=== PATIENT | female | born 1940 | race Caucasian/White ===

== ENCOUNTER → 2024-01-06 07:45 | Outpatient (REF) | payer MEDICARE, OTHER, SELFPAY ==
[2024-01-06 12:23] LABS: Albumin 3.7 g/dl (3.5-5.0); Blood Urea Nitrogen 25 mg/dl (7-17); Calcium 10.2 mg/dl (8.4-10.2); Carbon Dioxide 32 mmol/L (22-30); Chloride 102 mmol/L (98-107); Glucose 92 mg/dl (70-99); Phosphorus 3.9 mg/dl (2.5-4.5); Potassium 3.7 mmol/L (3.5-5.1); Sodium 135 mmol/L (135-145); eGFR > 60.00
== END ==
LOC: HWLAB 07:45
PROVIDERS: ATTENDING PHYSICIAN Internal Medicine Cardiovascular Disease; FAMILY PHYSICIAN Nurse Practitioner Adult Health
DX: I48.19 Other persistent atrial fibrillation (principal); I48.91 Unspecified atrial fibrillation; I10 Essential (primary) hypertension; I34.0 Nonrheumatic mitral (valve) insufficiency; R60.0 Localized edema
CPT/HCPCS: 36415; 80069

== ENCOUNTER → 2024-01-25 13:01 | Outpatient (REF) | payer MEDICARE, OTHER, SELFPAY | LOC: DHCBC HW 13:01 | PROVIDERS: ATTENDING PHYSICIAN Internal Medicine Cardiovascular Disease; FAMILY PHYSICIAN Nurse Practitioner Adult Health | DX: I48.91 Unspecified atrial fibrillation (principal); I48.19 Other persistent atrial fibrillation; I10 Essential (primary) hypertension; I34.0 Nonrheumatic mitral (valve) insufficiency; I36.1 Nonrheumatic tricuspid (valve) insufficiency | CPT/HCPCS: 93306 ==

== ENCOUNTER → 2024-02-28 17:23 | Outpatient (REF) | payer MEDICARE, OTHER, SELFPAY | LOC: WDC 17:23 | PROVIDERS: ATTENDING PHYSICIAN Nurse Practitioner Adult Health | DX: Z12.31 Encounter for screening mammogram for malignant neoplasm of breast (principal) | CPT/HCPCS: 77063; 77067 ==

== ENCOUNTER → 2024-03-02 07:14 | Outpatient (REF) | payer MEDICARE, OTHER, SELFPAY ==
[2024-03-02 10:19] LABS: ALT (SGPT) 16 U/L (0-35); AST (SGOT) 29 U/L (14-36); Albumin 3.7 g/dl (3.5-5.0); Alkaline Phosphatase 79 U/L (38-126); Blood Urea Nitrogen 27 mg/dl (7-17); Calcium 10.2 mg/dl (8.4-10.2); Carbon Dioxide 30 mmol/L (22-30); Chloride 105 mmol/L (98-107); Glucose 92 mg/dl (70-99); Potassium 3.9 mmol/L (3.5-5.1); Sodium 139 mmol/L (135-145); Total Bilirubin 0.5 mg/dl (0.2-1.3); eGFR > 60.00
== END ==
LOC: HWLAB 07:14
PROVIDERS: ATTENDING PHYSICIAN Internal Medicine Rheumatology; FAMILY PHYSICIAN Nurse Practitioner Adult Health
DX: M81.0 Age-related osteoporosis without current pathological fracture (principal); Z79.899 Other long term (current) drug therapy
CPT/HCPCS: 36415; 80053

== ENCOUNTER 2024-05-23 06:23 | Day surgery (SDC) | payer SELFPAY, MEDICARE, OTHER ==
[2024-05-11 08:45] VITALS: BMI 24.1
[2024-05-11 10:09] LABS: % Basophils 0.5 % (0-2); % Eosinophils 1.6 % (0-6); % Immature Granulocytes 0.3 % (0-0.5); % Lymphocytes 22.6 % (20.5-51.1); % Monocytes 11.2 % (1.7-9.3); % Neutrophils 63.8 % (42.2-75.2); Absolute Eosinophils 0.1 10^3/uL (0-0.7); Absolute Lymphocytes 1.7 10^3/uL (1.2-3.4); Absolute Monocytes 0.8 10^3/uL (0.1-0.6); Absolute Neutrophils 4.8 10^3/uL (1.4-6.5); Hematocrit 38.2 % (37.0-47.0); Hemoglobin 12.7 g/dL (12.0-16.0); Mean Corp Hgb Conc. 33.2 g/dL (33.0-37.0); Mean Corpuscular Hgb 30.8 pg (27.0-31.0); Mean Corpuscular Volume 92.7 fL (81.0-99.0); Mean Platelet Volume 10.8 fL (7.4-10.4); Nucleated Red Blood Cells % 0 %; Platelet Count 250 10^3/uL (130-400); Red Blood Cell Count 4.12 10^6/uL (4.20-5.40); Red Cell Dist. Width 14.6 % (11.5-14.5); White Blood Cell Count 7.5 10^3/uL (4.8-10.8)
[2024-05-11 10:24] LABS: ALT (SGPT) 15 U/L (0-35); AST (SGOT) 24 U/L (14-36); Albumin 3.8 g/dl (3.5-5.0); Alkaline Phosphatase 70 U/L (38-126); Blood Urea Nitrogen 27 mg/dl (7-17); Calcium 10.4 mg/dl (8.4-10.2); Carbon Dioxide 30 mmol/L (22-30); Chloride 102 mmol/L (98-107); Estimated Creatinine Clearance 37 ml/min; Glucose 83 mg/dl (70-99); Potassium 3.9 mmol/L (3.5-5.1); Sodium 138 mmol/L (135-145); Total Bilirubin 0.6 mg/dl (0.2-1.3); Total Protein 6.6 g/dl (6.3-8.2); eGFR > 60.00
[2024-05-23] VITALS (9 sets, daily range): BP systolic 113–153; BP diastolic 59–90; BMI 24.1
[2024-05-23] MEDS: NORMOSOL-R 1000 IV (11:30)
[2024-05-23] MEDS: TYLENOL 1000 MG PO ×3 (11:32→23:18)
--- NOTE | 2024-05-23 13:27 | W.SUR.PREOP ---
Pre-Operative Surgical Note
-
I have examined this patient prior to the performance of the scheduled procedure.
The patient's condition is unchanged from the time of the current History and
Physical and the patient is able to undergo the scheduled procedure.
--- NOTE | 2024-05-23 13:30 | W.IMMPOSTOP ---
Surgical Immed Post Op Note
-
Primary Surgeon: JAIDEN Tuttle MD
Assisting Surgeon:
Pre-op Diagnosis: Capsular Contracture, Breast implant rupture; bilateral
Post-op Diagnosis: Same
Procedure Performed: Bilateral capsulectomies and removal of breast implants with reinsertion
Anesthesia Type:
Specimen / Cultures: Bilateral breast capsules
Estimated Blood Loss: 10cc
Complications: None
Operative Findings: Bilateral ruptures silicone implants
--- NOTE | 2024-05-23 13:30 | OR.RPT ---
Operative Report
Operative Report
Date of surgery: 05/23/2024
Surgeon: JAIDEN Tuttle MD
Preoperative diagnosis total: History of bilateral breast implants, bilateral capsular contracture, bilateral implant rupture
Postoperative diagnosis: Same
Procedure:
1. Bilateral capsulectomy, total, with removal of ruptured implant contents
2. Bilateral reinsertion of silicone gel breast implants (cosmetic)
anesthesia: General
Complications: None
Specimens: Right and left breast capsule
EBL: 30 cc
Indications for procedure: Patient is an 83-year-old female with a history of bilateral silicone gel breast implants. These were placed over 20 years ago. She has recently had a mammogram and additional imaging study that showed concern for
implant rupture. She presented for consideration of removal and capsulectomy for capsular contracture. We discussed her options at length. This included going back to her baseline breast size, performing a lift, or replacing the breast implants.
She understood that replacement of breast implants would be done for cosmetic and self-pay. Risks of implants were reviewed at length including capsular contracture, rupture, infection, malposition, rippling and wrinkling. She understood these
risk desired to proceed. Given her medical history, cardiology and pulmonology were both consulted for preoperative clearance. A plan was made with her tree worker for perioperative hold of anticoagulation. She understood the risks associated
and consented accordingly. Her daughters were present at the consultation and subsequent visits.
Procedure in detail: Patient was identified in the preoperative area and the surgical site was confirmed to be the bilateral breast. Bilateral inframammary fold incisions were marked accordingly. All questions were answered and consents were
confirmed. Patient was then taken back to the operating room placed supine on the table. Anesthesia was induced and LMA was placed. Procedure began with the injection 1% lidocaine with epinephrine in the bilateral proposed incisions. 15 blade
was used to incise the markings on the right breast and dissection continued with Bovie electrocautery. A total en bloc capsulectomy was performed however there was evidence of implant rupture into the associated subcutaneous tissues. There is no
evidence of implant size as the shell was largely no longer intact. Attempt at displacement testing showed at least a 300 cc implant. Patient desired to be bigger following the replacement the implants, and as such a larger implant was selected.
After ensuring meticulous hemostasis on the right, blocks were performed with dilute half percent Marcaine. The wound was irrigated with double antibiotic solution and dilute Betadine and the skin was reprepped. Under sterile conditions and using
a no touch technique and new gloves a new Sientra silicone gel implant was placed. Wound was then closed in layers using 2-0 Vicryl followed by 3-0 and 4 Monocryl. The exact same procedure was then performed on the left side. A capsulectomy was
performed through an inframammary fold incision. There was also evidence of implant rupture and the shell was not intact to determine the size. As such the equivalent implant was from the right was chosen and placed on the left side as well. This
was done with no touch technique using a Alex funnel and after donning new gloves. Blocks were also performed on the side. The new larger implants occupy the potential space and no drains were placed accordingly. Patient tolerated the procedure
well was performed out complication all counts were correct at the end the case. She was extubated transferred to PACU for further care. Incisions were dressed with bacitracin dry gauze and Tegaderm. Compressive bra was placed.
[2024-05-23] MEDS: LIPITOR 10 MG PO (18:05)
--- NOTE | 2024-05-23 18:07 | PTCARENOTE ---
Received pt from PACU in bed. AO but drowsy. Curtis breast dressings c/d/i, compression bra in place. VSS. Reports pain is tolerable, unable to quantify.
[2024-05-23] MEDS: ULTRAM 50 MG PO (18:33)
[2024-05-23] MEDS: ANCEF 5 IV (20:38)
[2024-05-24 03:17] VITALS: BP 146/74
[2024-05-24] MEDS: ANCEF 5 IV (05:27)
[2024-05-24] MEDS: TYLENOL 1000 MG PO ×2 (05:27→11:37)
[2024-05-24 07:00] VITALS: BP 146/81
[2024-05-24] MEDS: LASIX 20 MG PO (07:51)
[2024-05-24] MEDS: CARDIZEM CD 120 MG PO (07:52)
--- NOTE | 2024-05-24 09:11 | W.PN.PLAS ---
Today's Communication
-
discharge to home
Progress Note
Subjective Data
Denies SOB
Pain well controlled on PO meds
Subjective: Tolerating Regular Diet
Objective Data
Vital Signs
Temp Pulse Resp BP Pulse Ox
97.8 F 89 16 146/81 96
05/24/24 07:00 05/24/24 07:51 05/24/24 07:03 05/24/24 07:51 05/24/24 07:03
Intake and Output
05/23/24 05/24/24 05/25/24
06:59 06:59 06:59
Intake Total 580 / 580
Balance 580 / 580
Intake:
Oral fluids 480 / 480
IV fluids (Total) 100 / 100
Normosol 100 / 100
Other:
Number of approximated MODERATE 1
amounts of urine
Number of approximated LARGE 1
amounts of urine
Physical Exam:
Nad
No increased WOB
Bilateral breasts soft
No undrained collections appreciated
Dressings intact
Lab Results
05/11/24 08:43
05/11/24 08:43
Assessment / Plan
s/p bilateral removal of ruptured breast implants and capsulectomies with replacement of silicone gel implants
-Discharge to home
-Compressive bra
-Continue home medications
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
--- NOTE | 2024-05-24 09:17 | W.DCSUMMARY ---
Discharge Summary
Discharge Data
Date of Admission: 05/23/24
Date of Discharge: 05/24/24
-
Pending Results: No
Hospital Course
Admitted for airway monitoring after bilateral ruptured breast implant removal and capsulectomies.
Followed a routine postoperative course
Discharged to home with short term follow up
Discharge Plan
-
Patient Disposition: Home (Routine Discharge)
Condition: Good
Referrals:
Naseem Tuttle MD [Active] -
UNKNOWN - PT DOES,NOT KNOW [Family Provider] -
Prescriptions:
New
tramadol 50 mg Tablet
50 mg PO Q6HPRN PRN (Reason: pain) 5 Days Qty: 12 0RF
cefadroxil 500 mg capsule
500 mg PO BID Qty: 14 0RF
acetaminophen [Tylenol Extra Strength] 500 mg Tablet
1,000 mg PO Q6 30 Days Qty: 240 0RF
Continued
simvastatin 20 MG tablet
10 mg PO QPM
calcium 500 mg Tablet
500 mg PO BID
Colace 50 mg Capsule
1 mg PO PRN PRN (Reason: constipation)
furosemide 20 mg Tablet
20 mg PO DAILY
escitalopram oxalate 10 mg Tablet
10 mg PO DAILY
Prolia 60 mg/mL Syringe
60 mg SC [id number]
Arnuity Ellipta 200 mcg/actuation Blister With Device
1 inh INHALATION DAILY
diltiazem HCl [Cartia XT] 120 mg Capsule,Extended Release 24hr
120 mg PO DAILY
Held
Eliquis 2.5 mg Tablet
2.5 mg PO BID
Hold Instructions: Resume on 05/25/24.
Hold for 48 hours postoperatively
Discharge Orders:
Discharge Patient (As Directed); Ordered 05/24/24
Ordered By: Naseem Tuttle
Discharge Date and Time
Print Language: [place]
--- NOTE | 2024-05-24 09:59 | CM ---
Reviewed the chart notes and spoke with the patient and her daughters at the bedside. The patient resides alone in a condo, no steps to enter. The patient uses a cane outside her condo only. The patient has had VN in past, but could not recall
the name of the agency, no SNF. The [facility] choice [facility]. The patient's daughter will provide transportation home today. CM continues to be available to patient/family and is monitoring medical plan for needs at
discharge.
Plan: Discharge to home today. No needs identified.
[2024-05-24 11:48] VITALS: BP 134/76
== END 2024-05-24 12:56 | disposition home or self-care (01) ==
LOC: SDS 06:23
PROVIDERS: ATTENDING PHYSICIAN Surgery Plastic and Reconstructive Surgery
DX: Z41.1 Encounter for cosmetic surgery (principal); T85.49XA Other mechanical complication of breast prosthesis and implant, initial encounter; Y83.1 Surgical operation with implant of artificial internal device as the cause of abnormal reaction of the patient, or of later complication, without mention of misadventure at the time of the procedure
CPT/HCPCS: 19342; 19370; 88304; 36415; 80053; 85025; 93005; 94640

== ENCOUNTER → 2024-06-20 13:07 | Outpatient (REF) | payer MEDICARE, OTHER, SELFPAY ==
[2024-06-20 16:01] LABS: % Basophils 0.6 % (0-2); % Eosinophils 1.8 % (0-6); % Immature Granulocytes 0.3 % (0-0.5); % Monocytes 9.2 % (1.7-9.3); % Neutrophils 69.1 % (42.2-75.2); Absolute Basophils 0.1 10^3/uL (0-0.2); Absolute Eosinophils 0.2 10^3/uL (0-0.7); Absolute Lymphocytes 1.7 10^3/uL (1.2-3.4); Absolute Monocytes 0.8 10^3/uL (0.1-0.6); Absolute Neutrophils 6.1 10^3/uL (1.4-6.5); Hematocrit 36.4 % (37.0-47.0); Hemoglobin 11.8 g/dL (12.0-16.0); Mean Corp Hgb Conc. 32.4 g/dL (33.0-37.0); Mean Corpuscular Hgb 30.9 pg (27.0-31.0); Mean Corpuscular Volume 95.3 fL (81.0-99.0); Mean Platelet Volume 10.8 fL (7.4-10.4); Nucleated Red Blood Cells % 0 %; Platelet Count 388 10^3/uL (130-400); Red Blood Cell Count 3.82 10^6/uL (4.20-5.40); Red Cell Dist. Width 18.4 % (11.5-14.5); White Blood Cell Count 8.8 10^3/uL (4.8-10.8)
[2024-06-20 16:13] LABS: ALT (SGPT) 15 U/L (0-35); AST (SGOT) 26 U/L (14-36); Alkaline Phosphatase 58 U/L (38-126); Blood Urea Nitrogen 30 mg/dl (7-17); Carbon Dioxide 35 mmol/L (22-30); Chloride 100 mmol/L (98-107); Glucose 115 mg/dl (70-99); Phosphorus 2.9 mg/dl (2.5-4.5); Potassium 3.7 mmol/L (3.5-5.1); Sodium 141 mmol/L (135-145); Total Bilirubin 0.6 mg/dl (0.2-1.3); Total Protein 6.7 g/dl (6.3-8.2); eGFR 50.17
== END ==
LOC: HWLAB 13:07
PROVIDERS: ATTENDING PHYSICIAN Nurse Practitioner Adult Health
DX: Z86.73 Personal history of transient ischemic attack (TIA), and cerebral infarction without residual deficits (principal); I48.91 Unspecified atrial fibrillation; I10 Essential (primary) hypertension; D64.9 Anemia, unspecified; E83.39 Other disorders of phosphorus metabolism
CPT/HCPCS: 36415; 80053; 84100; 85025

== ENCOUNTER → 2024-07-19 13:02 | Outpatient (REF) | payer MEDICARE, OTHER, SELFPAY | LOC: HWRAD 13:02 | PROVIDERS: ATTENDING PHYSICIAN Internal Medicine Rheumatology; FAMILY PHYSICIAN Nurse Practitioner Adult Health | DX: M81.0 Age-related osteoporosis without current pathological fracture (principal); M85.89 Other specified disorders of bone density and structure, multiple sites; Z13.820 Encounter for screening for osteoporosis | CPT/HCPCS: 77080; 77081 ==

== ENCOUNTER → 2024-08-14 07:58 | Outpatient (REF) | payer MEDICARE, OTHER, SELFPAY ==
[2024-08-14 09:40] LABS: % Basophils 0.4 % (0-2); % Eosinophils 1.2 % (0-6); % Immature Granulocytes 0.3 % (0-0.5); % Lymphocytes 23.7 % (20.5-51.1); % Monocytes 11.1 % (1.7-9.3); % Neutrophils 63.3 % (42.2-75.2); Absolute Eosinophils 0.1 10^3/uL (0-0.7); Absolute Lymphocytes 1.7 10^3/uL (1.2-3.4); Absolute Monocytes 0.8 10^3/uL (0.1-0.6); Absolute Neutrophils 4.6 10^3/uL (1.4-6.5); Hematocrit 38.1 % (37.0-47.0); Hemoglobin 12.3 g/dL (12.0-16.0); Mean Corp Hgb Conc. 32.3 g/dL (33.0-37.0); Mean Corpuscular Hgb 30.2 pg (27.0-31.0); Mean Corpuscular Volume 93.6 fL (81.0-99.0); Mean Platelet Volume 10.8 fL (7.4-10.4); Nucleated Red Blood Cells % 0 %; Platelet Count 262 10^3/uL (130-400); Red Blood Cell Count 4.07 10^6/uL (4.20-5.40); Red Cell Dist. Width 13.9 % (11.5-14.5); White Blood Cell Count 7.3 10^3/uL (4.8-10.8)
[2024-08-14 10:14] LABS: ALT (SGPT) 14 U/L (0-35); AST (SGOT) 27 U/L (14-36); Albumin 3.8 g/dl (3.5-5.0); Alkaline Phosphatase 57 U/L (38-126); Blood Urea Nitrogen 28 mg/dl (7-17); Calcium 10.4 mg/dl (8.4-10.2); Carbon Dioxide 32 mmol/L (22-30); Chloride 102 mmol/L (98-107); Glucose 86 mg/dl (70-99); HDL Cholesterol 91 mg/dl; LDL Cholesterol, Calculated 97 mg/dl; Sodium 141 mmol/L (135-145); Total Bilirubin 0.5 mg/dl (0.2-1.3); Total Cholesterol 199 mg/dl (50-199); Total Protein 6.7 g/dl (6.3-8.2); Triglyceride 55 mg/dl (10-149); Very Low Density Lipoprotein 11 mg/dl (0-30); eGFR > 60.00
[2024-08-14 10:44] LABS: TSH Reflex To Free T4 1.13 uIU/ml (0.47-4.68)
[2024-08-14 11:03] LABS: Vitamin B12 743 pg/ml (239-931)
== END ==
LOC: HWLAB 07:58
PROVIDERS: ATTENDING PHYSICIAN Nurse Practitioner Adult Health
DX: I10 Essential (primary) hypertension (principal); Z00.00 Encounter for general adult medical examination without abnormal findings; Z79.899 Other long term (current) drug therapy; Z13.29 Encounter for screening for other suspected endocrine disorder
CPT/HCPCS: 36415; 80053; 80061; 82607; 84443; 85025

== ENCOUNTER → 2024-09-17 08:50 | Outpatient (REF) | payer MEDICARE, OTHER, SELFPAY ==
[2024-09-17 12:25] LABS: ALT (SGPT) 22 U/L (0-35); AST (SGOT) 31 U/L (14-36); Alkaline Phosphatase 66 U/L (38-126); Blood Urea Nitrogen 26 mg/dl (7-17); Carbon Dioxide 31 mmol/L (22-30); Chloride 102 mmol/L (98-107); Glucose 86 mg/dl (70-99); Potassium 3.5 mmol/L (3.5-5.1); Sodium 143 mmol/L (135-145); Total Bilirubin 0.5 mg/dl (0.2-1.3); Total Protein 7.1 g/dl (6.3-8.2); eGFR > 60.00
== END ==
LOC: HWLAB 08:50
PROVIDERS: ATTENDING PHYSICIAN Internal Medicine Rheumatology; FAMILY PHYSICIAN Nurse Practitioner Adult Health
DX: M81.0 Age-related osteoporosis without current pathological fracture (principal); Z79.899 Other long term (current) drug therapy
CPT/HCPCS: 36415; 80053

== ENCOUNTER → 2024-10-03 14:46 | Outpatient (REF) | payer MEDICARE, OTHER, SELFPAY | LOC: RAD 14:46 | PROVIDERS: ATTENDING PHYSICIAN Registered Nurse Ambulatory Care; FAMILY PHYSICIAN Nurse Practitioner Adult Health | DX: M54.41 Lumbago with sciatica, right side (principal) | CPT/HCPCS: 72110 ==

== ENCOUNTER → 2024-10-26 11:27 | Outpatient (REF) | payer MEDICARE, OTHER, SELFPAY ==
[2024-10-26 15:33] LABS: Blood Urea Nitrogen 29 mg/dl (7-17); Calcium 10.8 mg/dl (8.4-10.2); Carbon Dioxide 33 mmol/L (22-30); Chloride 97 mmol/L (98-107); Glucose 104 mg/dl (70-99); Potassium 3.2 mmol/L (3.5-5.1); Sodium 137 mmol/L (135-145); eGFR 50.17
== END ==
LOC: HWLAB 11:27
PROVIDERS: ATTENDING PHYSICIAN Internal Medicine Cardiovascular Disease; FAMILY PHYSICIAN Nurse Practitioner Adult Health
DX: I48.91 Unspecified atrial fibrillation (principal); I10 Essential (primary) hypertension; I48.19 Other persistent atrial fibrillation; I34.0 Nonrheumatic mitral (valve) insufficiency; R60.0 Localized edema
CPT/HCPCS: 36415; 80069

== ENCOUNTER → 2024-11-02 10:26 | Outpatient (REF) | payer MEDICARE, OTHER, SELFPAY ==
[2024-11-02 17:01] LABS: Albumin 3.9 g/dl (3.5-5.0); Blood Urea Nitrogen 29 mg/dl (7-17); Calcium 10.3 mg/dl (8.4-10.2); Carbon Dioxide 28 mmol/L (22-30); Chloride 104 mmol/L (98-107); Glucose 87 mg/dl (70-99); Phosphorus 3.1 mg/dl (2.5-4.5); Potassium 4.1 mmol/L (3.5-5.1); Sodium 140 mmol/L (135-145); eGFR > 60.00
== END ==
LOC: HWLAB 10:26
PROVIDERS: ATTENDING PHYSICIAN Internal Medicine Cardiovascular Disease; FAMILY PHYSICIAN Nurse Practitioner Adult Health
DX: R60.0 Localized edema (principal)
CPT/HCPCS: 36415; 80069

== ENCOUNTER → 2024-11-15 11:27 | Outpatient (REF) | payer MEDICARE, OTHER, SELFPAY ==
[2024-11-15 13:03] LABS: Albumin 4.2 g/dl (3.5-5.0); Blood Urea Nitrogen 20 mg/dl (7-17); Calcium 10.6 mg/dl (8.4-10.2); Carbon Dioxide 31 mmol/L (22-30); Chloride 101 mmol/L (98-107); Glucose 87 mg/dl (70-99); Phosphorus 3.9 mg/dl (2.5-4.5); Potassium 3.6 mmol/L (3.5-5.1); Sodium 138 mmol/L (135-145); eGFR > 60.00
== END ==
LOC: HWLAB 11:27
PROVIDERS: ATTENDING PHYSICIAN Internal Medicine Cardiovascular Disease; FAMILY PHYSICIAN Nurse Practitioner Adult Health
DX: I48.91 Unspecified atrial fibrillation (principal); I10 Essential (primary) hypertension; I48.19 Other persistent atrial fibrillation; I34.0 Nonrheumatic mitral (valve) insufficiency; R60.0 Localized edema
CPT/HCPCS: 36415; 80069

== ENCOUNTER → 2025-01-09 11:23 | Outpatient (REF) | payer MEDICARE, OTHER, SELFPAY | LOC: HWRCS 11:23 | PROVIDERS: ATTENDING PHYSICIAN Internal Medicine Cardiovascular Disease; FAMILY PHYSICIAN Nurse Practitioner Adult Health | DX: Z01.810 Encounter for preprocedural cardiovascular examination (principal); I48.91 Unspecified atrial fibrillation; I34.0 Nonrheumatic mitral (valve) insufficiency | CPT/HCPCS: 93306 ==

== ENCOUNTER → 2025-01-29 10:26 | Outpatient (REF) | payer MEDICARE, OTHER, SELFPAY ==
[2025-01-29 12:54] LABS: % Basophils 0.4 % (0-2); % Eosinophils 0.8 % (0-6); % Immature Granulocytes 0.1 % (0-0.5); % Lymphocytes 20.6 % (20.5-51.1); % Monocytes 9.8 % (1.7-9.3); % Neutrophils 68.3 % (42.2-75.2); Absolute Eosinophils 0.1 10^3/uL (0-0.7); Absolute Lymphocytes 1.5 10^3/uL (1.2-3.4); Absolute Monocytes 0.7 10^3/uL (0.1-0.6); Absolute Neutrophils 5.1 10^3/uL (1.4-6.5); Hematocrit 41.4 % (37.0-47.0); Hemoglobin 13.6 g/dL (12.0-16.0); Mean Corp Hgb Conc. 32.9 g/dL (33.0-37.0); Mean Corpuscular Hgb 30.8 pg (27.0-31.0); Mean Corpuscular Volume 93.9 fL (81.0-99.0); Mean Platelet Volume 11.1 fL (7.4-10.4); Nucleated Red Blood Cells % 0 %; Platelet Count 306 10^3/uL (130-400); Red Blood Cell Count 4.41 10^6/uL (4.20-5.40); Red Cell Dist. Width 13.4 % (11.5-14.5); White Blood Cell Count 7.5 10^3/uL (4.8-10.8)
[2025-01-29 13:27] LABS: ALT (SGPT) 17 U/L (0-35); AST (SGOT) 29 U/L (14-36); Albumin 4.5 g/dl (3.5-5.0); Alkaline Phosphatase 69 U/L (38-126); Blood Urea Nitrogen 22 mg/dl (7-17); Calcium 10.2 mg/dl (8.4-10.2); Carbon Dioxide 29 mmol/L (22-30); Chloride 103 mmol/L (98-107); Glucose 85 mg/dl (70-99); Sodium 141 mmol/L (135-145); Total Bilirubin 0.8 mg/dl (0.2-1.3); Total Protein 7.5 g/dl (6.3-8.2); eGFR > 60.00
== END ==
LOC: HWLAB 10:26
PROVIDERS: ATTENDING PHYSICIAN Nurse Practitioner Adult Health
DX: I48.19 Other persistent atrial fibrillation (principal); Z79.01 Long term (current) use of anticoagulants; E83.52 Hypercalcemia
CPT/HCPCS: 36415; 80053; 85025

== ENCOUNTER → 2025-03-18 09:42 | Outpatient (REF) | payer MEDICARE, OTHER, SELFPAY ==
[2025-03-18 12:47] LABS: ALT (SGPT) 17 U/L (0-35); AST (SGOT) 27 U/L (14-36); Albumin 4.1 g/dl (3.5-5.0); Alkaline Phosphatase 61 U/L (38-126); Blood Urea Nitrogen 25 mg/dl (7-17); Calcium 11.1 mg/dl (8.4-10.2); Carbon Dioxide 33 mmol/L (22-30); Chloride 104 mmol/L (98-107); Glucose 94 mg/dl (70-99); Potassium 3.8 mmol/L (3.5-5.1); Sodium 141 mmol/L (135-145); Total Bilirubin 0.8 mg/dl (0.2-1.3); Total Protein 7.2 g/dl (6.3-8.2); Vitamin D, 25-OH*** 50.6 ng/mL (30-80); eGFR > 60.00
== END ==
LOC: HWLAB 09:42
PROVIDERS: ATTENDING PHYSICIAN Internal Medicine Rheumatology; FAMILY PHYSICIAN Nurse Practitioner Adult Health
DX: E55.9 Vitamin D deficiency, unspecified (principal); M81.0 Age-related osteoporosis without current pathological fracture; Z79.899 Other long term (current) drug therapy
CPT/HCPCS: 36415; 80053; 82306

== ENCOUNTER → 2025-04-09 12:43 | Outpatient (REF) | payer MEDICARE, OTHER, SELFPAY ==
[2025-04-09 16:06] LABS: Albumin 4.1 g/dl (3.5-5.0); Blood Urea Nitrogen 24 mg/dl (7-17); Calcium 9.7 mg/dl (8.4-10.2); Carbon Dioxide 30 mmol/L (22-30); Chloride 106 mmol/L (98-107); Glucose 87 mg/dl (70-99); Phosphorus 3.4 mg/dl (2.5-4.5); Sodium 141 mmol/L (135-145); eGFR > 60.00
== END ==
LOC: HWLAB 12:43
PROVIDERS: ATTENDING PHYSICIAN Internal Medicine Cardiovascular Disease; FAMILY PHYSICIAN Nurse Practitioner Adult Health
DX: I48.19 Other persistent atrial fibrillation (principal); E87.6 Hypokalemia
CPT/HCPCS: 36415; 80069

== ENCOUNTER → 2025-04-23 09:55 | Outpatient (REF) | payer MEDICARE, OTHER, SELFPAY ==
[2025-04-23 12:13] LABS: % Basophils 0.4 % (0-2); % Eosinophils 1.1 % (0-6); % Immature Granulocytes 0.2 % (0-0.5); % Lymphocytes 20.7 % (20.5-51.1); % Monocytes 10.1 % (1.7-9.3); % Neutrophils 67.5 % (42.2-75.2); Absolute Eosinophils 0.1 10^3/uL (0-0.7); Absolute Lymphocytes 1.8 10^3/uL (1.2-3.4); Absolute Monocytes 0.9 10^3/uL (0.1-0.6); Hematocrit 41.1 % (37.0-47.0); Hemoglobin 13.3 g/dL (12.0-16.0); Mean Corp Hgb Conc. 32.4 g/dL (33.0-37.0); Mean Corpuscular Volume 92.8 fL (81.0-99.0); Mean Platelet Volume 10.3 fL (7.4-10.4); Nucleated Red Blood Cells % 0 %; Platelet Count 307 10^3/uL (130-400); Red Blood Cell Count 4.43 10^6/uL (4.20-5.40); White Blood Cell Count 8.9 10^3/uL (4.8-10.8)
[2025-04-23 13:33] LABS: ALT (SGPT) 22 U/L (0-35); AST (SGOT) 30 U/L (14-36); Albumin 4.3 g/dl (3.5-5.0); Alkaline Phosphatase 73 U/L (38-126); Blood Urea Nitrogen 27 mg/dl (7-17); Calcium 10.3 mg/dl (8.4-10.2); Carbon Dioxide 30 mmol/L (22-30); Chloride 105 mmol/L (98-107); Glucose 94 mg/dl (70-99); HDL Cholesterol 106 mg/dl; LDL Cholesterol, Calculated 114 mg/dl; Phosphorus 3.5 mg/dl (2.5-4.5); Potassium 4.1 mmol/L (3.5-5.1); Sodium 139 mmol/L (135-145); Total Bilirubin 0.8 mg/dl (0.2-1.3); Total Cholesterol 234 mg/dl (50-199); Total Protein 7.7 g/dl (6.3-8.2); Triglyceride 71 mg/dl (10-149); Very Low Density Lipoprotein 14 mg/dl (0-30); eGFR > 60.00
[2025-04-23 13:58] LABS: TSH Reflex To Free T4 1.38 uIU/ml (0.47-4.68)
== END ==
LOC: HWLAB 09:55
PROVIDERS: ATTENDING PHYSICIAN Internal Medicine Cardiovascular Disease; FAMILY PHYSICIAN Nurse Practitioner Adult Health
DX: I48.19 Other persistent atrial fibrillation (principal); E87.6 Hypokalemia; E83.52 Hypercalcemia; I10 Essential (primary) hypertension; Z79.899 Other long term (current) drug therapy; Z13.29 Encounter for screening for other suspected endocrine disorder
CPT/HCPCS: 36415; 80053; 80061; 84100; 84443; 85025

== ENCOUNTER → 2025-06-27 11:28 | Outpatient (REF) | payer MEDICARE, OTHER, SELFPAY ==
[2025-06-27 15:54] LABS: Albumin 4.1 g/dl (3.5-5.0); Blood Urea Nitrogen 23 mg/dl (7-17); Calcium 9.7 mg/dl (8.4-10.2); Carbon Dioxide 28 mmol/L (22-30); Chloride 106 mmol/L (98-107); Glucose 78 mg/dl (70-99); Potassium 3.7 mmol/L (3.5-5.1); Sodium 137 mmol/L (135-145); eGFR > 60.00
== END ==
LOC: HWLAB 11:28
PROVIDERS: ATTENDING PHYSICIAN Internal Medicine Cardiovascular Disease; FAMILY PHYSICIAN Nurse Practitioner Adult Health
DX: Z01.810 Encounter for preprocedural cardiovascular examination (principal); I50.30 Unspecified diastolic (congestive) heart failure
CPT/HCPCS: 36415; 80069

== ENCOUNTER → 2025-07-18 11:18 | Outpatient (REF) | payer MEDICARE, OTHER, SELFPAY | LOC: HWRCS 11:18 | PROVIDERS: ATTENDING PHYSICIAN Internal Medicine Cardiovascular Disease; FAMILY PHYSICIAN Nurse Practitioner Adult Health | DX: Z01.810 Encounter for preprocedural cardiovascular examination (principal); I48.19 Other persistent atrial fibrillation; I34.0 Nonrheumatic mitral (valve) insufficiency; I36.1 Nonrheumatic tricuspid (valve) insufficiency; I35.1 Nonrheumatic aortic (valve) insufficiency | CPT/HCPCS: 93306 ==

== ENCOUNTER → 2025-08-22 09:12 | Outpatient (REF) | payer MEDICARE, OTHER, SELFPAY ==
[2025-08-22 12:36] LABS: ALT (SGPT) 18 U/L (0-35); AST (SGOT) 27 U/L (14-36); Albumin 3.8 g/dl (3.5-5.0); Alkaline Phosphatase 61 U/L (38-126); Blood Urea Nitrogen 20 mg/dl (7-17); Calcium 9.7 mg/dl (8.4-10.2); Carbon Dioxide 30 mmol/L (22-30); Chloride 105 mmol/L (98-107); Glucose 85 mg/dl (70-99); HDL Cholesterol 92 mg/dl; LDL Cholesterol, Calculated 97 mg/dl; Potassium 4.0 mmol/L (3.5-5.1); Sodium 135 mmol/L (135-145); Total Protein 7.0 g/dl (6.3-8.2); Very Low Density Lipoprotein 14 mg/dl (0-30); eGFR > 60.00
[2025-08-22 13:08] LABS: Hematocrit 41.6 % (37.0-47.0); Hemoglobin 13.2 g/dL (12.0-16.0); Mean Corp Hgb Conc. 31.7 g/dL (33.0-37.0); Mean Corpuscular Volume 92.9 fL (81.0-99.0); Nucleated Red Blood Cells % 0 %; Platelet Count 301 10^3/uL (130-400); Red Cell Dist. Width 14.6 % (11.5-14.5)
== END ==
LOC: HWLAB 09:12
PROVIDERS: ATTENDING PHYSICIAN Nurse Practitioner Adult Health
DX: I10 Essential (primary) hypertension (principal); Z00.00 Encounter for general adult medical examination without abnormal findings; Z79.899 Other long term (current) drug therapy; Z13.29 Encounter for screening for other suspected endocrine disorder
CPT/HCPCS: 36415; 80053; 80061; 84443; 85025

== ENCOUNTER → 2025-10-02 14:26 | Outpatient (REF) | payer MEDICARE, OTHER, SELFPAY | LOC: RAD 14:26 | PROVIDERS: ATTENDING PHYSICIAN Internal Medicine Rheumatology | DX: M54.50 Low back pain, unspecified (principal); M81.0 Age-related osteoporosis without current pathological fracture | CPT/HCPCS: 72072; 72100 ==

== ENCOUNTER 2025-10-03 10:03 | Emergency (ER) | payer MEDICARE, OTHER, SELFPAY ==
[2025-10-03 10:08] VITALS: BMI 25.8
[2025-10-03 10:09] VITALS: BP 153/97
--- NOTE | 2025-10-03 10:12 | ED.GENMED ---
History of Present Illness
<BRUCE Sam - Last Filed: 10/03/25 13:57>
General
Chief Complaint: Back Pain
Source: patient
Exam Limitations: none
Time Seen by Provider: 10/03/25 10:05
Nursing documentation reviewed up to this point in time: agreed with
History of Present Illness
History of Present Illness:
85-year-old female presents to the ER from home complaining of low back pain. Patient reports she has had low back pain for the past week however this morning woke up with right upper back pain. This pain seems worse with movement is worse with
twisting turning and taking a deep breath. She denies any injury. Denies any radiation. Denies any chest pain. She does not feel any new shortness of breath. She has some valve issues and has some mild chronic shortness of breath. She is on
Eliquis for stroke and has not skipped a dose. No prior history of DVT PE. Denies any lower extremity swelling.
Past History
<BRUCE Sam - Last Filed: 10/03/25 13:57>
Past History
ED Past Medical History: Cancer (Cervical cancer), HTN, Hypercholesterolemia, Valvular disease (Mitral valve prolapse), Other (Chronic rhinitis) and Other (Hypertension, essential tremor)
ED Past Surgical History: Gynecological (Hysterectomy) and Other (Septoplasty, turbinectomy August 2012)
Social History
Tobacco: Non-smoker
Alcohol: None
Drug: None
Personal:
Living: with family
Employment: Retired
Family History
Family History: Hypertension
Phy Exam
<BRUCE Sam - Last Filed: 10/03/25 13:57>
General Physical Exam
General Presentation: no apparent distress
General age: appears stated age
General Skin: warm and dry
General Habitus: normal
General Mental: alert
General Hydration: appears well hydrated
Cardiovascular Exam
Cardiovascular Exam: regular rate/rhythm, no murmur and normal peripheral pulses
Pulmonary Exam
Pulmonary Exam: lungs clear and no respiratory distress
Neurological Exam
Neurological Exam: alert and oriented x3
Musculoskeletal Exam
Musculoskeletal Exam: other (Right upper back, thoracic region tender to palpation minimal amount of redness patient was using heating pad no bony midline tenderness )
Course
<BRCUE Sam - Last Filed: 10/03/25 13:57>
Orders/Labs/Results
Orders:
Orders
10/03/25 10:24
diazePAM [Valium Injection] 2 mg IV NOW STA
10/03/25 12:00
Morphine Sulfate 2 mg IV NOW STA
Vital Signs
Initial and Last Documented VS:
Initial Vital Signs
Pulse Resp Pulse Ox
83 14 96
10/03/25 10:08 10/03/25 10:08 10/03/25 10:08
Last Documented Vital Signs
Temp Pulse Resp BP Pulse Ox
98.1 F 92 15 134/79 98
10/03/25 10:09 10/03/25 13:34 10/03/25 13:15 10/03/25 13:00 10/03/25 13:15
Structures Technician consulted with Physician
Structures Technician consulted with physician?: Yes
Name of Physician Consulted: Joe
<Mark Diaz DO - Last Filed: 10/03/25 13:40>
Orders/Labs/Results
Orders:
Orders
10/03/25 10:24
diazePAM [Valium Injection] 2 mg IV NOW STA
10/03/25 12:00
Morphine Sulfate 2 mg IV NOW STA
Vital Signs
Initial and Last Documented VS:
Initial Vital Signs
Pulse Resp Pulse Ox
83 14 96
10/03/25 10:08 10/03/25 10:08 10/03/25 10:08
Last Documented Vital Signs
Temp Pulse Resp BP Pulse Ox
98.1 F 92 15 134/79 98
10/03/25 10:09 10/03/25 13:34 10/03/25 13:15 10/03/25 13:00 10/03/25 13:15
<BRUCE Sam - Last Filed: 10/03/25 13:57>
MDM/Problems Addressed
Differential Diagnosis Includes:
Not limited to muscle spasm less likely PE
MDM/Problems Addressed:
As documented patient is an 85-year-old female on [facility] with history of stroke presents for back pain. She has had low back pain for the past week however this morning woke up with right upper back pain. Back pain is more consistent with
muscular worse with movement twisting turning. She is tender to palpation. She is anticoagulated and less likely PE she is not tachycardic nontachypneic nonhypoxic. Will try a small dose of IV Valium and reassess and see how she does.
Patient outpatient x-rays done yesterday x-ray of lumbar spine shows progressive changes including age-indeterminate there are new compression deformities at multiple levels; mild to moderate superior plate compression deformity of L1 has progressed
mild Bur[place]on stature involving anterior plate of L2 as well as subtle stature along superior endplate of L3 ; thoracic x-ray shows mild left thoracic scoliosis having progressed no new or acute thoracic vertebral compression deformity however
identified on T-spine x-ray. Patient did not get relief from Valium however felt very tired for the Valium. Still very uncomfortable. Patient was given morphine and then reassessed and now feeling much better able to walk back and forth to the
bathroom feels as though she can go home with small dose of pain medication. I did discuss risks of medication including drowsiness. Daughter will stay with patient in edition patient lives with her niece. Discussed constipation. Patient has an
appoint with her orthopedic back specialist Dr. Kaminski October 16 encouraged with PCP follow-up as well.
Chronic conditions affecting care:
back issues on eliis with history of stroke less likely PE unable to take NSAIDs
<BRUCE Sam - Last Filed: 10/03/25 13:57>
*Radiology
Radiology exam reviewed: radiology read reviewed (Reviewed outpatient imaging)
*Pulse Oximetry
SaO2: 98
Oxygen Mode of Delivery: Room air
Patient hypoxic: no
*Critical Care Note
Total Time (30-74mins, 75-104mins- exclusive of procedures): Not Applicable
ED Attending Note
<BRUCE Sam - Last Filed: 10/03/25 13:57>
-
Portions of this chart may have been created with voice recognition software.� Occasional wrong word or��sound alike� substitutions may have occurred due to the inherent limitations of voice recognition software.
<Mark Diaz DO - Last Filed: 10/03/25 13:40>
ED Attending Note
Patient seen and examined by attending physician: Yes
I performed the substantive portion of visit, reviewed & personally made and approve the management plan that is documented in note by myself or DORETHA.: Yes
ED Attending Note:
I have seen and evaluated the patient with a [id number] encounter. I have spoken to the advance practicer provider and involved in the medical history, the physical exam, medical decision making.
Evaluation and management service: agree unless noted differently below.
Results interpretation: agree unless noted differently below.
Focused HPI: 85-year-old female presenting with worsening back pain. Outpatient x-rays were performed showing concern for new compression fractures
Physical exam: On my exam, patient received Valium for suspected muscle spasm. Patient very sleepy but arouses to verbal stimuli
Medical Decision Making: Patient still complaining of significant pain despite the Valium. Patient had required 2 L nasal cannula due to decreased respirations as a side effect of the Valium.
After the Valium wore off, the oxygen was removed. Patient given a dose of morphine which has helped significantly. Patient feels comfortable going home but will require short course of pain medicine
Discharge Plan
Departure
Patient Disposition: Home (Routine Discharge)
Date of Disposition: 10/03/25
Time of Disposition: 13:48
Patient with high blood pressure during this ER visit?: Yes
Condition: Fair
Covid-19: Not Applicable
Discharge Problem:
Back pain
Instructions: Vertebral Compression Fracture ED, Back Pain, BLOOD PRESSURE
Prescriptions:
New
oxycodone 5 mg tablet
5 mg PO Q6H PRN (Reason: Pain) Qty: 10 0RF
No Action
simvastatin 20 MG tablet
10 mg PO QPM
calcium 500 mg Tablet
500 mg PO BID
docusate sodium 50 mg Capsule
1 mg PO PRN PRN (Reason: constipation)
furosemide 20 mg Tablet
20 mg PO DAILY
escitalopram oxalate 10 mg Tablet
10 mg PO DAILY
Prolia 60 mg/mL Syringe
60 mg SC [id number]
Eliquis 2.5 mg Tablet
2.5 mg PO BID
Arnuity Ellipta 200 mcg/actuation Blister With Device
1 inh INHALATION DAILY
diltiazem HCl [Cartia XT] 120 mg Capsule,Extended Release 24hr
120 mg PO DAILY
tramadol 50 mg Tablet
50 mg PO Q6HPRN PRN (Reason: pain) 5 Days Qty: 12 0RF
acetaminophen [Tylenol Extra Strength] 500 mg Tablet
1,000 mg PO Q6 30 Days Qty: 240 0RF
cefadroxil 500 mg capsule
500 mg PO BID Qty: 14 0RF
Referrals:
Hola Kaminski DO [Non-Admitting Privileges, Orthopedics]
Leigha Vieyra CRNP [Family Provider, Internal Medicine]
Activity Restrictions/Additional Instructions:
As discussed take Tylenol every 4-6 hours as needed. In addition you may take oxycodone. This medication was sent to your pharmacy.
This medication is a narcotic and will cause drowsiness.
please use your walker and get assistance while walking especially back and forth to the bathroom. This medication may cause constipation .
please take [id number] laxative. In addition increase your diet high in fresh fruits and vegetables. Follow-up closely with your family doctor in the next several days and digital media specialist as scheduled. Return if any worsening of
symptoms.
Interventions
Interventions:
*Risk Screen - Suicide Last Done: 10/03/25 10:09
*General Assessment Last Done: 10/03/25 10:09
*Neglect/Abuse Screening Last Done: 10/03/25 10:09
*ED COVID-19 Vaccine History Last Done: 10/03/25 10:09
*ED Influenza Vaccine History Last Done: 10/03/25 10:09
[facility] Risk Assessment Tool Last Done: 10/03/25 10:09
ED-Musculoskeletal Assessment Last Done: 10/03/25 10:12
Discharge Date and Time
Print Language: [place]
[2025-10-03] MEDS: VALIUM INJECTION 2 MG IV (10:37)
[2025-10-03 11:00] VITALS: BP 139/88
[2025-10-03 12:00] VITALS: BP 113/75
[2025-10-03] MEDS: MORPHINE SULFATE 2 MG IV (12:03)
[2025-10-03 13:00] VITALS: BP 134/79
== END 2025-10-03 14:51 | disposition home or self-care (01) ==
LOC: EMR 10:03
PROVIDERS: EMERGENCY PHYSICIAN Student in an Organized Health Care Education/Training Program; FAMILY PHYSICIAN Nurse Practitioner Adult Health
DX: M54.50 Low back pain, unspecified (principal); I10 Essential (primary) hypertension; E78.00 Pure hypercholesterolemia, unspecified; I34.1 Nonrheumatic mitral (valve) prolapse; Z86.73 Personal history of transient ischemic attack (TIA), and cerebral infarction without residual deficits; Z85.41 Personal history of malignant neoplasm of cervix uteri; Z79.01 Long term (current) use of anticoagulants; Z90.710 Acquired absence of both cervix and uterus
CPT/HCPCS: 96374; 96375; 99284

== ENCOUNTER 2025-10-16 07:00 | Day surgery (SDC) | payer MEDICARE, OTHER, SELFPAY ==
[2025-10-09 12:50] VITALS: BMI 24.4
== END 2025-10-16 09:40 | disposition home or self-care (01) ==
LOC: CATH 07:00
PROVIDERS: ATTENDING PHYSICIAN Internal Medicine Cardiovascular Disease; FAMILY PHYSICIAN Nurse Practitioner Adult Health
DX: I08.3 Combined rheumatic disorders of mitral, aortic and tricuspid valves (principal); I11.0 Hypertensive heart disease with heart failure; I50.30 Unspecified diastolic (congestive) heart failure; E78.5 Hyperlipidemia, unspecified; I48.19 Other persistent atrial fibrillation; J84.10 Pulmonary fibrosis, unspecified; G47.33 Obstructive sleep apnea (adult) (pediatric); Z86.0100 Personal history of colon polyps, unspecified; Z87.19 Personal history of other diseases of the digestive system; G62.9 Polyneuropathy, unspecified; G25.0 Essential tremor; Z86.73 Personal history of transient ischemic attack (TIA), and cerebral infarction without residual deficits; M19.90 Unspecified osteoarthritis, unspecified site; E04.2 Nontoxic multinodular goiter; Z90.710 Acquired absence of both cervix and uterus; Z85.41 Personal history of malignant neoplasm of cervix uteri; J31.0 Chronic rhinitis; H40.9 Unspecified glaucoma; F41.9 Anxiety disorder, unspecified; F32.A Depression, unspecified; M81.0 Age-related osteoporosis without current pathological fracture; E87.6 Hypokalemia; Z79.899 Other long term (current) drug therapy; Z87.891 Personal history of nicotine dependence; Z79.84 Long term (current) use of oral hypoglycemic drugs; Z79.01 Long term (current) use of anticoagulants; Z88.1 Allergy status to other antibiotic agents; Z91.048 Other nonmedicinal substance allergy status; Z77.22 Contact with and (suspected) exposure to environmental tobacco smoke (acute) (chronic); Z98.41 Cataract extraction status, right eye; Z98.42 Cataract extraction status, left eye; Z98.82 Breast implant status
CPT/HCPCS: 93312; 93320; 93325